=== PATIENT | male | born 2000 | race Caucasian/White ===

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

== ENCOUNTER 2025-04-13 10:20 | Emergency (ER) | payer OTHER ==
[2025-04-13 10:26] VITALS: BP 145/78; PULSE 91; TEMP 98
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
[2025-04-13] MEDS: PENICILLIN G BENZATHINE 1,200,000 UNIT/2 ML SYRINGE IM ONE (11:24)
[2025-04-13 12:03] VITALS: RESP 16
== END 2025-04-13 11:30 | disposition home or self-care (01) ==
LOC: EC 10:20
DX: K13.70 Unspecified lesions of oral mucosa (principal); A53.9 Syphilis, unspecified
CPT/HCPCS: 36415; 86780; 99283; 96372; J0561